=== PATIENT | female | born 1935 | race Caucasian/White ===

== ENCOUNTER 2016-04-29 09:42 | Outpatient (CLI) | payer OTHER ==
--- NOTE | 2016-04-29 11:53 | DIAGNOSTIC IMAGING REPORT ---
PROCEDURE: US BILATERAL CAROTID DOPPLER INDICATION: LEFT CAROTID STENOSIS TECHNIQUE: Color Doppler duplex imaging of the carotid and vertebral vessels. COMPARISON: None. FINDINGS: Right carotid system: Right internal carotid bulb plaque with stenosis of less than of 5-15%. Right external carotid stenosis degree of and 50%. Left carotid system: Left internal carotid stenosis 70-79%. Vertebral System: Antegrade vertebral artery flow bilaterally. Right common carotid artery peak systolic velocity 61 cm/second. Right internal carotid artery peak systolic velocity 85 cm/second. Right external carotid artery peak systolic velocity 385 cm/second. Right ohjmoezt-jk-mctftt carotid artery ratio 1.4 Right vertebral artery peak systolic velocity 36 cm/second. Left common carotid artery peak systolic velocity 65 cm/second. Left internal carotid artery peak systolic velocity 420/106 cm/second. Left external carotid artery peak systolic velocity 154 cm/second. Left qnjecled-gj-sgwush carotid artery ratio 6.4 Left vertebral artery peak systolic velocity 73 cm/second. IMPRESSION: 1. Left internal carotid bulb stenosis 70-79%. 2. Antegrade vertebral artery flow bilaterally. Velocity criteria are extrapolated from diameter data as defined by the Society of Radiologists in Ultrasound Consensus Conference, Radiology 2003; 229; 340-346.
--- NOTE | 2016-04-29 11:53 | DIAGNOSTIC IMAGING REPORT ---
PROCEDURE: US BILATERAL CAROTID DOPPLER INDICATION: LEFT CAROTID STENOSIS TECHNIQUE: Color Doppler duplex imaging of the carotid and vertebral vessels. COMPARISON: None. FINDINGS: Right carotid system: Right internal carotid bulb plaque with stenosis of less than of 5-15%. Right external carotid stenosis degree of and 50%. Left carotid system: Left internal carotid stenosis 70-79%. Vertebral System: Antegrade vertebral artery flow bilaterally. Right common carotid artery peak systolic velocity 61 cm/second. Right internal carotid artery peak systolic velocity 85 cm/second. Right external carotid artery peak systolic velocity 385 cm/second. Right ubbbqdxb-pd-njchvx carotid artery ratio 1.4 Right vertebral artery peak systolic velocity 36 cm/second. Left common carotid artery peak systolic velocity 65 cm/second. Left internal carotid artery peak systolic velocity 420/106 cm/second. Left external carotid artery peak systolic velocity 154 cm/second. Left zvlpgmfe-fy-szwthj carotid artery ratio 6.4 Left vertebral artery peak systolic velocity 73 cm/second. IMPRESSION: 1. Left internal carotid bulb stenosis 70-79%. 2. Antegrade vertebral artery flow bilaterally. Velocity criteria are extrapolated from diameter data as defined by the Society of Radiologists in Ultrasound Consensus Conference, Radiology 2003; 229; 340-346.
== END 2016-04-29 23:00 ==
LOC: US SRH 09:42
DX: I65.22 Occlusion and stenosis of left carotid artery (principal)

== ENCOUNTER → 2016-09-23 | Outpatient (CLI) | payer OTHER ==
--- NOTE | 2016-09-23 13:52 | DIAGNOSTIC IMAGING REPORT ---
PROCEDURE: MG BILATERAL SCREENING W/CAD INDICATION: SCREENING TECHNIQUE: Bilateral CC and MLO digital views. COMPARISON: Comparison is made to prior outside mammogram studies from [facility] in [place], [place] on 09/24/2015, 09/15/2014, and 2013. FINDINGS: Computer-aided detection applied. Mildly dense with a few dystrophic calcifications. No change. IMPRESSION: 1. Negative mammogram RESULT CODE: 1- Negative. A. A negative report should not delay biopsy if a dominant or clinically suspicious mass is present. 10-15% of cancers are not identified by x-ray. B. A negative report may reinforce clinical impression. C. Adenosis and dense breasts may obscure an underlying neoplasm. D. False positive reports average 6-10%. E.. A yearly screening mammogram is recommended. A reminder letter will be scheduled.
--- NOTE | 2016-09-23 13:52 | DIAGNOSTIC IMAGING REPORT ---
PROCEDURE: MG BILATERAL SCREENING W/CAD INDICATION: SCREENING TECHNIQUE: Bilateral CC and MLO digital views. COMPARISON: Comparison is made to prior outside mammogram studies from [facility] in [place], [place] on 09/24/2015, 09/15/2014, and 2013. FINDINGS: Computer-aided detection applied. Mildly dense with a few dystrophic calcifications. No change. IMPRESSION: 1. Negative mammogram RESULT CODE: 1- Negative. A. A negative report should not delay biopsy if a dominant or clinically suspicious mass is present. 10-15% of cancers are not identified by x-ray. B. A negative report may reinforce clinical impression. C. Adenosis and dense breasts may obscure an underlying neoplasm. D. False positive reports average 6-10%. E.. A yearly screening mammogram is recommended. A reminder letter will be scheduled.
== END ==
LOC: MAM SRH 12:49
DX: Z12.31 Encounter for screening mammogram for malignant neoplasm of breast (principal)